=== PATIENT | female | born 1985 | race Caucasian/White ===

== ENCOUNTER 2018-10-05 10:39 | Emergency (ER) | payer MEDICARE ==
[~2018-10-05] VITALS: Ht 165.1 cm; Wt 55.0 kg
[2018-10-05 10:43] VITALS: BP 124/90
[2018-10-05] MEDS ORDERED: DIPHENHYDRAMINE 25 MG CAPSULE PO ONE (11:30)
[2018-10-05] MEDS ORDERED: FAMOTIDINE 20 MG TABLET PO ONE (11:30)
== END 2018-10-05 12:00 | disposition home or self-care (01) ==
LOC: ED 11:50
DX: B02.33 Zoster keratitis (principal); F17.200 Nicotine dependence, unspecified, uncomplicated
CPT/HCPCS: 99283